=== PATIENT | female | born 1955 | race Caucasian/White ===

== ENCOUNTER 2022-04-01 12:13 | Outpatient (CLI) | payer OTHER | END 2022-04-01 12:23 | disposition home or self-care (01) | LOC: PPH VACUNA 12:13 | PROVIDERS: ATTEND Emergency Medicine Pediatric Emergency Medicine | DX: Z23 Encounter for immunization (principal) ==

== ENCOUNTER 2024-07-12 14:05 | Outpatient (CLI) | payer OTHER | END 2024-07-12 14:10 | disposition home or self-care (01) | LOC: RAD 14:05 | PROVIDERS: ATTEND Physical Medicine & Rehabilitation | DX: M25.551 Pain in right hip (principal); M25.552 Pain in left hip ==